=== PATIENT | female | born 1950 | race Caucasian/White ===

== ENCOUNTER → 2022-08-29 13:18 | Outpatient (CLI) | payer OTHER, SELFPAY ==
--- NOTE | 2022-08-29 13:20 | DI.RAD.S_ITS ---
PROCEDURE: XR CERVICAL SPINE 4V OR 5V INDICATIONS: NECK PAIN TECHNIQUE: 5 views of the cervical spine acquired. COMPARISON: None. FINDINGS: Bones: No fractures or dislocations to the C7 level. Moderate degenerative disease at C6-C7. Bilateral facet arthropathy, most pronounced and moderate at C5-C6 and C6-C7. Oblique images demonstrate mild bony foraminal stenoses at C5-C6 on the right and C3-C4, C4-C5 C7-T1 on the left. Soft tissues: No prevertebral soft tissue swelling. IMPRESSION: 1. Degenerative disc and facet disease in cervical spine. 2. Multilevel foraminal stenoses as described. Dictated by: Winifred Milton M.D. on 08/29/2022 at 15:23 Approved by: Winifred Milton M.D. on 08/29/2022 at 15:25
--- NOTE | 2022-08-29 13:20 | DI.RAD.S_ITS ---
PROCEDURE: XR LUMBAR SPINE MIN 4V INDICATIONS: BACK PAIN TECHNIQUE: 5 views of the lumbar spine were acquired, including bilateral oblique views. COMPARISON: [facility], CR, XR LUMBAR SPINE 2 OR 3 VIEWS, 05/01/2017, 15:04. [facility], MR, MR LUMBAR SPINE WITHOUT CONTRAST, 12/02/2019, 10:26. [facility], CR, XR LUMBAR SPINE 2 OR 3 VIEWS, 11/25/2019, 13:12. FINDINGS: Bones: Assuming the vertebra with a left rudimentary ribs is T12, there 5 [id number] vertebrae. There is grade 1 anterolisthesis of L3 on L4. No vertebral body compression fractures. No suspicious bony lesions. Mild degenerative disc disease at L2-L3, L3-L4 and L4-L5. Mild bilateral facet arthropathy at L4-L5 and L5-S1. Soft tissues: Overlying bowel gas pattern is normal. No suspicious soft tissue calcifications. Oblique images: No pars defects. IMPRESSION: 1. Degenerative disc and facet disease in lumbar spine. 2. Grade 1 anterolisthesis of L3 on L4. Dictated by: Winifred Milton M.D. on 08/29/2022 at 15:17 Approved by: Winifred Milton M.D. on 08/29/2022 at 15:23
== END ==
PROVIDERS: PCP Family Medicine; Referring Provider Physical Medicine & Rehabilitation; Visit Provider Physical Medicine & Rehabilitation
DX: M51.36 Other intervertebral disc degeneration, lumbar region (principal); M47.816 Spondylosis without myelopathy or radiculopathy, lumbar region; M47.817 Spondylosis without myelopathy or radiculopathy, lumbosacral region; M43.16 Spondylolisthesis, lumbar region; M50.323 Other cervical disc degeneration at C6-C7 level; M47.812 Spondylosis without myelopathy or radiculopathy, cervical region; M48.02 Spinal stenosis, cervical region; M48.062 Spinal stenosis, lumbar region with neurogenic claudication; M54.9 Dorsalgia, unspecified
CPT/HCPCS: 72050; 72110; 99214

== ENCOUNTER → 2022-09-03 10:35 | Outpatient (CLI) | payer OTHER, SELFPAY ==
--- NOTE | 2022-09-03 10:36 | DI.MRI.S_ITS ---
PROCEDURE: MR CERVICAL SPINE WO CON INDICATIONS: Cervical stenosis with left upper extremity symptoms TECHNIQUE: Noncontrast sagittal T1 spin echo and T2 fast spin echo, sagittal STIR, foraminal oblique sagittal T2 fast spin echo, and axial gradient echo or T2 fast spin echo through the cervical spine. COMPARISON: [facility], CR, XR CERVICAL SPINE 4V OR 5V, 08/29/2022, 13:17. FINDINGS: Image quality: Excellent. Alignment and Curvature: Trace anterolisthesis of C7 on T1. Note made of anterior articulation C1-C2 pannus without canal stenosis. Bone Marrow: Marrow demonstrates normal overall signal. Spinal Cord: Visualized spinal cord has normal size and signal. No cerebellar tonsillar herniation. Paraspinous Soft Tissues: No paravertebral masses. Prevertebral soft tissues are normal in thickness. C2-C3: No canal stenosis or foraminal stenosis. C3-C4: No canal stenosis. Mild right uncovertebral joint hypertrophy. Mild bilateral foraminal narrowing. C4-C5: No central canal stenosis. Bilateral facet hypertrophy, prominent on the right. Bilateral uncovertebral joint hypertrophy, right greater than left. Severe right foraminal narrowing with right foraminal C5 nerve root impingement. Moderate left foraminal narrowing with flattening deformity on the exiting left C5 nerve root. C5-C6: Disc bulge. Mild central canal stenosis. AP diameter of the canal is approximately 9.6 mm. Bilateral uncovertebral joint hypertrophy. Bilateral facet hypertrophy. Moderate bilateral foraminal narrowing with a degree of bilateral foraminal C6 nerve root impingement. C6-C7: Chronic disc height loss. Disc bulge. Disc material mildly indents on the cord. Borderline canal stenosis. AP diameter of the canal is 9.9 mm. Bilateral uncovertebral joint hypertrophy and facet hypertrophy. Moderate bilateral foraminal narrowing with flattening deformity on the bilateral foraminal C7 nerve roots. C7-T1: No canal stenosis. Bilateral facet hypertrophy. Moderate bilateral foraminal narrowing with flattening deformity on the exiting bilateral C8 nerve roots. IMPRESSION: 1. Spondylitic change with multilevel facet arthropathy and multilevel uncovertebral joint hypertrophy. 2. Mild canal stenosis at C5-C6 and C6-C7. 3. Significant multilevel foraminal narrowing as described above. Findings include severe right foraminal narrowing and moderate left foraminal narrowing at C4-C5. There is moderate bilateral foraminal narrowing at C5-C6, C6-C7, and C7-T1. Dictated by: Jason Villavicencio M.D. on 09/05/2022 at 8:27 Approved by: Jason Villavicencio M.D. on 09/05/2022 at 8:50
== END ==
PROVIDERS: PCP Family Medicine; Referring Provider Physical Medicine & Rehabilitation; Visit Provider Physical Medicine & Rehabilitation
DX: M48.02 Spinal stenosis, cervical region (principal); M47.812 Spondylosis without myelopathy or radiculopathy, cervical region
CPT/HCPCS: 72141

== ENCOUNTER 2023-06-15 13:23 | Outpatient (CLI) | payer OTHER, SELFPAY ==
[2023-06-15] VITALS (8 sets, daily range): BP systolic 134–177; BP diastolic 62–74; PULSE 47–53; RESP 16–22; TEMP 35.7; O2SAT 97–100
--- NOTE | 2023-06-15 14:00 | DI.RAD.S_ITS ---
PROCEDURE: PAIN L INTERLAMINAR/CAUDAL INJ INDICATIONS: para right L3/4 TL BANDAR COMPARISON: None. FINDINGS: Fluoroscopic spot filming was performed to verify placement of spinal needles at the right L3-L4 level(s), as labeled on the films. Appropriate location(s) of the needle tip(s) was confirmed by injection of iodinated contrast. IMPRESSION: Intraoperative guidance provided. Dictated by: Etienne Clement M.D. on 06/15/2023 at 17:04 Approved by: Etienne Clement M.D. on 06/15/2023 at 17:07
[2023-06-15] MEDS: MIDAZOLAM 2 MG/2 ML VIAL IV (14:39)
[2023-06-15] MEDS: iopamidoL 15 ML VIAL 3 ML INJ (14:44)
[2023-06-15] MEDS: DEXAMETHASONE 10 MG/ML VIAL INJ (14:45)
[2023-06-15] MEDS: BETAMETHASONE 30 MG/5 ML MDV 6 MG INJ (14:46)
[2023-06-15] MEDS: BUPIVACAINE 0.25% (PF) VIAL 2 ML INJ (14:46)
--- NOTE | 2023-06-15 14:53 | P.PCN_ITS ---
Date/Time/Diagnoses Date of procedure: 06/15/23 Time of procedure: 14:54 Pre-procedure diagnosis: 1. HNP WITH RADICULAR FEATURES, 2. MULTILEVEL CENTRAL STENOSIS, Post-procedure diagnosis: same Procedure Notes Procedure: 1. FLUOROSCOPICALLY GUIDED CONTRAST CONTROLLED INTERLAMINAR EPIDURAL STEROID INJECTION - L3/4 Indications: Katiuska is referred by Dr. Maldonado for treatment of Bilateral Foraminal Stenosis L>R LE symptoms. Physician: Aidan Viramontes Total Fluoroscopy time (seconds): 6 Total sedation minutes: 10 Complications: none Procedure in detail & Post-procedure care: FINDINGS Multilevel Central Spinal Stenosis with Nerve Root Compression DESCRIPTION OF PROCEDURE Fluoroscopically guided, contrast-controlled L3/4 translaminar epidural steroid injection. Following review of allergy and review of potential side effects and complications, including, but not necessarily limited to, infection, allergic reaction, local tissue breakdown, temporary as well as permanent nerve injury, paralysis, stroke and possible , the patient indicated that the patient understood and agreed to proceed. An informed consent document was signed by the patient, witnessed by a nurse, and placed in the patient's chart. Additionally, other treatment options including modalities, medications, and physical therapy were reviewed with the patient. After review of previous anaesthesic history and IV conscious sedation the patient was deemed safe to proceed with today?s procedure with IV conscious sedation as ASA class II designation. Safety time-out was performed to confirm patient ID, procedure to be performed and site of procedure. IV sedation was accomplished with a combination of 2mg of Versed was administered by the RN after DO order, titrated to patient comfort during the course of the procedure while the patient remained responsive to all verbal commands. In the prone position, following sterile prep and drape of the lumbar region, the L3/4 translaminar space was identified fluoroscopically. The skin was anesthetized via a 25-gauge, 1.5-inch needle with 1% lidocaine solution. At this point, a 22-gauge short bevel spinal needle was atraumatically introduced and advanced under fluoroscopic guidance into the region of the L3/4 translaminar space. Depth was confirmed on lateral view. Radiological data, including multiple fluoroscopic views of the lumbar spine, reveal a spinal needle at the L3/4 translaminar space. Lateral views then show placement of the needle in the epidural space. Subsequent views show contrast material flowing superiorly and inferiorly in the epidural space. No vascular or intrathecal uptake is observed. At this point, using loss of resistance technique with saline and air, the epidural space was entered. This was confirmed following negative aspiration with injection of approximately 1.5 cc of Isovue 200, showing excellent epidural flow without vascular or intrathecal uptake. At this point, 1cc of 1% lidocaine solution combined with 2cc or 10mg of dexamethasone and 6mg of betamethasone was injected without incident. The patient tolerated the procedure well without signs or symptoms of complications prior to transfer to the recovery area continued monitoring without incident. The patient was then transferred to the recovery area where they were observed for an appropriate period of time after the injection. The patient reported a VAS score of 7 prior to the procedure and a post- procedure VAS of 0. POST OP INSTRUCTIONS The patient was provided a Pain Log to continue to record their response to the target-specific procedure prior to follow-up visit with their referring physician. Additionally, specific post-injection care instructions and a contact number to our office were provided if concerns arise regarding possible complications associated with the procedure are suspected.
== END 2023-06-15 15:11 | disposition home or self-care (01) ==
PROVIDERS: PCP Family Medicine; Referring Provider Physical Medicine & Rehabilitation; Visit Provider Physical Medicine & Rehabilitation
DX: M48.061 Spinal stenosis, lumbar region without neurogenic claudication; M51.16 Intervertebral disc disorders with radiculopathy, lumbar region
CPT/HCPCS: 62323; 99152; J0702; J1100; J2250; J3490

== ENCOUNTER 2023-09-21 08:00 | Outpatient (CLI) | payer OTHER, SELFPAY ==
[2023-09-21] VITALS (10 sets, daily range): BP systolic 125–180; BP diastolic 57–84; PULSE 45–56; RESP 15–20; TEMP 36.4; O2SAT 94–97
--- NOTE | 2023-09-21 08:33 | PC.NURSE ---
Patients heart rate on admission 45BPM, patient states that is not uncommon since I am on atenolol and I took it last night. 3-lead EKG hooked up and is sinus amaris 45-50 bpm while at rest. Denies any dizziness or lightheaded. Dr Viramontes notified.
--- NOTE | 2023-09-21 08:45 | DI.RAD.S_ITS ---
PROCEDURE: PAIN C/T INTERLAMINAR INJECT INDICATIONS: C6/7 TL BANDAR COMPARISON: None. FINDINGS: Fluoroscopic spot filming was performed to verify placement of spinal needles at the C6-C7 level(s), as labeled on the films. Appropriate location(s) of the needle tip(s) was confirmed by injection of iodinated contrast. IMPRESSION: Intra procedural examination demonstrating appropriate positions of the needles. Dictated by: Bartolome Chua M.D. on 09/21/2023 at 16:06 Approved by: Bartolome Chua M.D. on 09/21/2023 at 16:06
[2023-09-21] MEDS: MIDAZOLAM 2 MG/2 ML VIAL 1 MG IV ×2 (08:59→09:02)
[2023-09-21] MEDS: BUPIVACAINE 0.25% (PF) VIAL 2 ML INJ (09:05)
[2023-09-21] MEDS: iopamidoL 15 ML VIAL 3 ML INJ (09:05)
[2023-09-21] MEDS: DEXAMETHASONE 10 MG/ML VIAL 20 MG INJ (09:05)
--- NOTE | 2023-09-21 09:20 | P.PCN_ITS ---
Date/Time/Diagnoses Date of procedure: 09/21/23 Time of procedure: 09:20 Pre-procedure diagnosis: 1. CERVICAL STENOSIS, 2. CERVICAL HNP WITH UPPER EXTREMITY RADICULAR FEATURES Post-procedure diagnosis: same Procedure Notes Procedure: 1. FLUORSCOPICALLY GUIDED CONTRAST CONTROLLED INTERLAMINAR EPIDURAL STEROID INJECTION - C6/7 TL BANDAR Indications: Katiuska is referred by Dr. Danielson for treatment of Cervical HNP with Upper Extremity Paresthesias. Physician: Aidan Viramontes Total Fluoroscopy time (seconds): 28 Total sedation minutes: 14 Complications: none Procedure in detail & Post-procedure care: FINDINGS Cervical Stenosis due to disc deterioration and nerve root irritation and nerve root irritation DESCRIPTION OF PROCEDURE Fluoroscopically guided, contrast-controlled C6/7 translaminar epidural steroid injection with conscious sedation. Following review of allergy and review of potential side effects and complications, including, but not necessarily limited to, infection, allergic reaction, local tissue breakdown, temporary as well as permanent nerve injury, stroke, paralysis, and possible , the patient indicated that patient understood and agreed to proceed. An informed consent document was signed by the patient, witnessed by a nurse, and placed in the patient's chart. Additionally, other treatment options including modalities, medications, and physical therapy were reviewed with the patient. After review of previous anaesthesic history and IV conscious sedation the patient was deemed safe to proceed with today?s procedure with IV conscious sed ation as ASA class II designation. Safety time-out was performed to confirm patient ID, procedure to be performed and site of procedure. IV sedation was accomplished with a combination of 2mg of Versed administered by the RN after DO order, titrated to patient comfort during the course of the procedure while the patient remained responsive to all verbal commands. In the prone position, following sterile prep and drape of the cervical region, the C6/7 translaminar space was identified fluoroscopically. The skin was anesthetized via a 25-gauge 1.5-inch needle with 1% lidocaine solution. At this point, a 25-gauge, 2.5-inch short bevel spinal needle was atraumatically introduced and advanced under fluoroscopic guidance into epidural space at the C6/7 translaminar space. Depth was confirmed on lateral view. Radiological data, including multiple fluoroscopic views of the cervical spine, reveal a spinal needle at the C6/7 translaminar space. Lateral views then show placement of the needle in the epidural space. Subsequent views show contrast material flowing superiorly and inferiorly in the epidural space. DSA fluoroscopy with live contrast injection, once again, confirmed no vascular or intrathecal uptake. At this point, using loss of resistance technique with saline and air, the epidural space was entered. Following negative aspiration, injection of approximately 1.5 cc of Isovue-200 with live fluoroscopy in the AP view confirmed epidural flow in the epidural space without vascular or intrathecal uptake observed. Subsequently, a test dose of 1 cc of 1% lidocaine solution was injected and patient was observed for two minutes without signs or symptoms of complications, including abdominal pain, shortness of breath, bilateral upper or lower extremity weakness, nausea and vomiting, prior to steroid injection. At this point, 2cc or 20mg of dexamethasone was then injected without incident. The patient tolerated the procedure well without signs or symptoms of co mplications prior to being transferred to the recovery area for further monitoring, The patient was then transferred to the recovery area where they were observed for an appropriate period of time after the injection. The patient reported a VAS score of 6 prior to the procedure and a post-procedure VAS of 0. POST OP INSTRUCTIONS The patient was provided a Pain Log to continue to record their response to the target-specific procedure prior to follow-up visit with the referring provider. Additionally, specific post-injection care instructions and a contact number to our office were provided if concerns arise regarding possible complications associated with the procedure are suspected.
== END 2023-09-21 09:40 | disposition home or self-care (01) ==
LOC: RAD 08:00
PROVIDERS: PCP Family Medicine; Referring Provider Physical Medicine & Rehabilitation; Visit Provider Physical Medicine & Rehabilitation
DX: M48.02 Spinal stenosis, cervical region (principal); M50.123 Cervical disc disorder at C6-C7 level with radiculopathy
CPT/HCPCS: 62321; 99152; J1100; J2250; J3490

== ENCOUNTER → 2024-03-14 14:43 | Outpatient (CLI) | payer OTHER, SELFPAY | PROVIDERS: Family Provider Family Medicine; PCP Family Medicine; Referring Provider Physical Medicine & Rehabilitation; Visit Provider Physical Medicine & Rehabilitation | DX: M54.12 Radiculopathy, cervical region (principal); M48.02 Spinal stenosis, cervical region | CPT/HCPCS: 95886; 95909 ==

== ENCOUNTER → 2024-11-08 11:11 | Outpatient (CLI) | payer OTHER, SELFPAY ==
--- NOTE | 2024-11-08 11:13 | DI.RAD.S_ITS ---
PROCEDURE: XR CERVICAL SPINE 4V OR 5V INDICATIONS: NECK PAIN TECHNIQUE: 5 total views of the cervical spine were acquired, including bilateral oblique views. COMPARISON: [facility], CR, XR LUMBAR SPINE MIN 4V, 11/08/2024, 11:37. [facility], CR, XR CERVICAL SPINE 4V OR 5V, 08/29/2022, 13:17. (Additional prior imaging is not available for review from the archive at the time of this dictation.) FINDINGS: Bones: No fractures or dislocations to the T1 level. No suspicious bony lesions. There is overall straightening of the normal cervical lordosis. No focal AP alignment abnormality is seen. On oblique images, there is moderate neural foraminal narrowing seen on the right at C4-C5, with mild right-sided neural foraminal narrowing at C6-C7. On the left, there is mild neural foraminal narrowing seen at C4-C5 and C5-C6. Focal degenerative change is seen involving the C1-C2 interface anteriorly. There is moderate disc space narrowing seen at C6-C7. Soft tissues: Prevertebral soft tissues are normal in thickness. Atherosclerotic calcification of the aortic arch is noted. The visualized lung apices are unremarkable. IMPRESSION: Cervical spine degenerative changes are seen by plain film, which are worst inferiorly. Dictated by: Kulwant Nunez M.D. on 11/08/2024 at 11:11 Approved by: Kulwant Nunez M.D. on 11/08/2024 at 11:13
--- NOTE | 2024-11-08 11:13 | DI.RAD.S_ITS ---
PROCEDURE: XR LUMBAR SPINE MIN 4V INDICATIONS: BACK PAIN TECHNIQUE: 5 views of the lumbar spine were acquired, including bilateral oblique views. COMPARISON: [facility], CR, XR CERVICAL SPINE 4V OR 5V, 11/08/2024, 11:37. [facility], CR, XR LUMBAR SPINE MIN 4V, 08/29/2022, 13:17. (Additional prior imaging is not available for review from the archive at the time of this dictation.) FINDINGS: Bones: 5 nonrib-bearing vertebrae are present. There is minimal anterolisthesis seen at the L3-L4 level. No vertebral body compression fractures. No suspicious bony lesions. There is [id number] disc space narrowing seen at L4-L5 and L5-S1. Lower lumbar spine facet arthropathy is seen. Soft tissues: Overlying bowel gas pattern is normal. No suspicious soft tissue calcifications. Cholecystectomy clips are seen. Oblique images: No pars defects. IMPRESSION: Lumbar spine degenerative changes are seen, which are worst inferiorly. Dictated by: Kulwant Nunez M.D. on 11/08/2024 at 11:13 Approved by: Kulwant Nunez M.D. on 11/08/2024 at 11:14
== END ==
LOC: RAD 11:12
PROVIDERS: Family Provider Family Medicine; PCP Family Medicine; Referring Provider Physical Medicine & Rehabilitation; Visit Provider Physical Medicine & Rehabilitation
DX: M47.22 Other spondylosis with radiculopathy, cervical region (principal); M48.02 Spinal stenosis, cervical region; M47.816 Spondylosis without myelopathy or radiculopathy, lumbar region; M47.817 Spondylosis without myelopathy or radiculopathy, lumbosacral region; M43.16 Spondylolisthesis, lumbar region
CPT/HCPCS: 72050; 72110